=== PATIENT | female | born 1985 | race Caucasian/White ===

== ENCOUNTER 2016-10-28 17:43 | Emergency (ER) | payer OTHER ==
[~2016-10-28] VITALS: Ht 172.7 cm; Wt 63.4 kg
[2016-10-28 17:45] VITALS: BP 144/82; PULSE 90; RESP 15; TEMP 99.4; O2SAT 100
[2016-10-28 18:05] LABS: BLOOD, URINE NEG (NEG); GLUCOSE,URINE NEG (NEG); KETONE, URINE NEG (NEG); NITRITE,URINE NEG (NEG)
[2016-10-28 18:15] LABS: COMMENT (UR) CULT NOT INDICATED; CULTURE IF INDICATED CULT NOT INDICATED; METHOD OF COLLECTION CLEAN CATCH; SQUAMOUS EPITHELIAL CELL URINE 0-5 /hpf (0-5); URINE COLOR STRAW (YELLW/STRAW)
[2016-10-28] MEDS ORDERED: SODIUM CHLORIDE 0.9% FLUSH 5 ML FLUSH IVF PRN (18:15)
--- NOTE | 2016-10-28 18:33 | PD ---
HPI . Abdominal pain Chief Complaint: Abdominal Pain Time Seen by Provider: 18:30 Travel History International Travel<30 days: No Contact w/Intl Traveler<30days: No History of Present Illness HPI Patient presents stating that she's been feeling premenstrual for the last month. He has lower abdominal cramping, breast tenderness, nausea with occasional vomiting and early satiety. She has taken a home test which was negative. The symptoms have persisted causing her to present to us today. She notes no exacerbating or relieving factors. The symptoms have been continuous for the last month. [facility] Past Medical History ?: Unknown LMP: 3 WEEKS. Social History Tobacco Use: No Allergies-Medications (Allergen,Severity, Reaction): Coded Allergies: No Known Allergies (Unverified , 10/28/16) Reported Meds & Prescriptions Reported Meds & Active Scripts Active No Active Prescriptions or Reported Medications Review of Systems Except as stated in HPI: all other systems reviewed are Neg General / Constitutional: No: Fever, Chills Gastrointestinal: Positive: Nausea, Vomiting Genitourinary: Positive: Pelvic Pain, No: Dyspareunia, Discharge Skin: Positive Breast Tenderness, Positive Breast Swelling Physical Exam Narrative GENERAL: Healthy-appearing woman in no acute distress. SKIN: Warm and dry. Both breasts are diffusely tender. There is no nipple discharge. There is no mass. HEAD: Atraumatic. Normocephalic. EYES: Pupils equal and round. Extraocular movements are intact. ENT: No nasal bleeding or discharge. Mucous membranes pink and moist. NECK: Trachea midline. Neck is supple. CARDIOVASCULAR: Regular rate and rhythm. Heart sounds are normal. RESPIRATORY: No accessory muscle use. Lungs are clear with full air movement throughout. GASTROINTESTINAL: Abdomen soft. Lower abdominal tenderness. Nondistended. Normal bowel sounds. : No significant vaginal discharge. Cervical os is closed. She does seem to have some cervical motion tenderness and there is a fullness a patient of the left adnexal region. MUSCULOSKELETAL: No obvious deformities. No edema. NEUROLOGICAL: Awake and alert. No obvious cranial nerve deficits. Motor grossly within normal limits. Normal speech. PSYCHIATRIC: Appropriate mood and affect; insight and judgment normal. Data Data Last Documented VS Vital Signs Date Time Temp Pulse Resp B/P Pulse Ox O2 Delivery O2 Flow Rate FiO2 10/28/16 17:45 99.4 90 15 144/82 100 Orders Urinalysis - C+S If Indicated (10/28/16 17:48) Ed Urine Pregnancytest Poc (10/28/16 17:48) Complete Blood Count With Diff (10/28/16 18:13) Comprehensive Metabolic Panel (10/28/16 18:13) Lipase (10/28/16 18:13) Sodium Chloride 0.9% Flush (Ns Flush) (10/28/16 18:15) Gc And Chlamydia Pcr (10/28/16 18:39) Wet Prep Profile (10/28/16 18:39) Beta Hcg (Quant/Titer) (10/28/16 18:13) Labs Laboratory Tests Test 10/28/16 17:50 Urine Collection Type CLEAN CATCH Urine Color STRAW Urine Turbidity CLEAR Urine pH 6.0 Urine Specific [place] 1.003 Urine Protein NEG mg/dL Urine Glucose (UA) NEG mg/dL Urine Ketones NEG mg/dL Urine Occult Blood NEG Urine Nitrite NEG Urine Bilirubin NEG Urine Leukocyte Esterase NEG Urine Squamous Epithelial 0-5 /hpf Cells Urine Amorphous Sediment FEW Microscopic Urinalysis Comment CULT NOT INDICATED Urine Collection Time 1750 [facility] Medical Decision Making Medical Screen Exam Complete: Yes Emergency Medical Condition: Yes Differential Diagnosis Differential diagnosis of pelvic pain includes but is not limited to UTI, PID, ectopic , spontaneous AB, constipation, viral illness Narrative Course Patient presents with signs and symptoms consistent with . However, her test is negative. She does have a fullness on pelvic exam on her left side. An ultrasound has been ordered to rule out TOA. I have also ordered a serum test. Her care is being turned over to Dr. Mendez at this time. Diagnosis Primary Impression: Pelvic pain Additional Impressions: Breast tenderness in female Nausea and vomiting Qualified Code: R11.2 - Non-intractable vomiting with nausea, unspecified vomiting type Scripts No Active Prescriptions or Reported Meds Ernestine Mondragon MD Oct 28, 2016 18:33
[2016-10-28 18:57] LABS: AUTOMATED NEUTROPHIL # 4.3 TH/MM3 (1.8-7.7); BASOPHIL # 0.1 TH/MM3 (0-0.2); BASOPHIL % 1.5 % (0.0-2.0); EOSINOPHIL # 0.1 TH/MM3 (0-0.4); EOSINOPHIL % 1.5 % (0.0-4.0); HEMATOCRIT 41.1 % (35.0-46.0); HEMO FLAGS DIFF FINAL; LYMPH % 36.5 % (9.0-44.0); LYMPHOCYTE # 2.8 TH/MM3 (1.0-4.8); MEAN CORPUSCULAR HEMOGLOBIN 31.7 PG (27.0-34.0); MEAN CORPUSCULAR HGB CONC 34.1 % (32.0-36.0); MONO % 6.9 % (0.0-8.0); NEUT % 53.6 % (16.0-70.0); PLATELET COUNT 202 TH/MM3 (150-450); RED BLOOD COUNT 4.42 MIL/MM3 (4.00-5.30); RED CELL DISTRIBUTION WIDTH 11.5 % (11.6-17.2); WHITE BLOOD COUNT 7.8 TH/MM3 (4.0-11.0)
[2016-10-28 19:04] LABS: CHLORIDE 106 MEQ/L (98-107); POTASSIUM 3.4 MEQ/L (3.5-5.1); SODIUM (NA) 142 MEQ/L (136-145)
[2016-10-28 19:08] LABS: ANION GAP 9 MEQ/L (5-15); BICARBONATE 26.8 MEQ/L (21.0-32.0)
[2016-10-28 19:09] LABS: BLOOD UREA NITROGEN 16 MG/DL (7-18)
[2016-10-28 19:11] LABS: ALT (GPT) 20 U/L (10-53); AST (GOT) 18 U/L (15-37); GLOMERULAR FILTRATION RATE 80 ML/MIN (>89)
[2016-10-28 19:13] LABS: TOTAL BILIRUBIN ADULT 0.4 MG/DL (0.2-1.0)
[2016-10-28 19:14] LABS: ALKALINE PHOSPHATASE 47 U/L (45-117)
[2016-10-28 19:16] LABS: BETA HCG QUANT LESS THAN 1 MIU/ML (0-5)
--- NOTE | 2016-10-28 19:18 | PD ---
Physical Exam Date Seen by Provider: Oct 28, 2016 Time Seen by Provider: 19:17 Narrative accepted in transfer from Dr Mondragon GENERAL: Well-developed well-nourished female in no acute distress or respiratory distress GASTROINTESTINAL: Abdomen soft, tender left lower quadrant without guarding or rebound, nondistended. Data Data Last Documented VS Vital Signs Date Time Temp Pulse Resp B/P Pulse Ox O2 Delivery O2 Flow Rate FiO2 10/28/16 19:25 83 16 115/63 100 Room Air 10/28/16 17:45 99.4 Orders Urinalysis - C+S If Indicated (10/28/16 17:48) Ed Urine Pregnancytest Poc (10/28/16 17:48) Complete Blood Count With Diff (10/28/16 18:13) Comprehensive Metabolic Panel (10/28/16 18:13) Lipase (10/28/16 18:13) Sodium Chloride 0.9% Flush (Ns Flush) (10/28/16 18:15) Gc And Chlamydia Pcr (10/28/16 18:39) Wet Prep Profile (10/28/16 18:39) Beta Hcg (Quant/Titer) (10/28/16 18:13) Us Pelvis Comp Quality Control Expert/Non-Preg (10/28/16 18:54) Ketorolac Inj (Toradol Inj) (10/28/16 20:15) Potassium Chloride (Kcl) (10/28/16 20:15) Labs Laboratory Tests Test 10/28/16 10/28/16 10/28/16 17:30 17:50 18:35 White Blood Count 7.8 TH/MM3 Red Blood Count 4.42 MIL/MM3 Hemoglobin 14.0 GM/DL Hematocrit 41.1 % Mean Corpuscular Volume 93.0 FL Mean Corpuscular Hemoglobin 31.7 PG Mean Corpuscular Hemoglobin 34.1 % Concent Red Cell Distribution Width 11.5 % Platelet Count 202 TH/MM3 Mean Platelet Volume 10.1 FL Neutrophils (%) (Auto) 53.6 % Lymphocytes (%) (Auto) 36.5 % Monocytes (%) (Auto) 6.9 % Eosinophils (%) (Auto) 1.5 % Basophils (%) (Auto) 1.5 % Neutrophils # (Auto) 4.3 TH/MM3 Lymphocytes # (Auto) 2.8 TH/MM3 Monocytes # (Auto) 0.5 TH/MM3 Eosinophils # (Auto) 0.1 TH/MM3 Basophils # (Auto) 0.1 TH/MM3 CBC Comment DIFF FINAL Differential Comment Sodium Level 142 MEQ/L Potassium Level 3.4 MEQ/L Chloride Level 106 MEQ/L Carbon Dioxide Level 26.8 MEQ/L Anion Gap 9 MEQ/L Blood Urea Nitrogen 16 MG/DL Creatinine 0.82 MG/DL Estimat Glomerular Filtration 80 ML/MIN Rate Random Glucose 83 MG/DL Calcium Level 9.1 MG/DL Total Bilirubin 0.4 MG/DL Aspartate Amino Transf 18 U/L (AST/SGOT) Alanine Aminotransferase 20 U/L (ALT/SGPT) Alkaline Phosphatase 47 U/L Total Protein 8.4 GM/DL Albumin 4.4 GM/DL Lipase 170 U/L Human Chorionic Gonadotropin, LESS THAN 1 Quant MIU/ML Urine Collection Type CLEAN CATCH Urine Color STRAW Urine Turbidity CLEAR Urine pH 6.0 Urine Specific [place] 1.003 Urine Protein NEG mg/dL Urine Glucose (UA) NEG mg/dL Urine Ketones NEG mg/dL Urine Occult Blood NEG Urine Nitrite NEG Urine Bilirubin NEG Urine Leukocyte Esterase NEG Urine Squamous Epithelial 0-5 /hpf Cells Urine Amorphous Sediment FEW Microscopic Urinalysis Comment CULT NOT INDICATED Urine Collection Time 1750 Clue Cells (Wet Prep) NONE SEEN Vaginal Trichomonas (Wet Prep) NONE SEEN Vaginal Yeast (Wet Prep) NONE SEEN MDM Medical Record Reviewed: Yes Supervised Visit with DEEPALI: No Differential Diagnosis accepted in transfer from Dr Mondragon, please refer to her dictation Narrative Course accepted in transfer from Dr Mondragon; follow up of pending labs, imaging, and disposition At 8 PM lab values are resulted and found to be within normal range CBC is automated differential values are normal range, quantitative hCG 1, not elevated negative for , complete metabolic panel values are normal range except for mild hypokalemia of 3.4, oral potassium replacement provided, urinalysis values are in normal range, wet prep is negative, and ultrasound of the pelvis shows scant free fluid otherwise normal reproductive organs and no acute abnormality per reading radiologist. Patient informed of imaging results , Toradol 30 mg IV administered and potassium 20 mEq by mouth administered; informed of need for close follow up with her PCP for further outpatient evaluation. Diagnosis Primary Impression: Pelvic pain Additional Impressions: Breast tenderness in female Nausea and vomiting Qualified Code: R11.2 - Non-intractable vomiting with nausea, unspecified vomiting type Referrals: Primary Care Physician call for appointment Patient Instructions: General Instructions Additional Instruction: Use medication as prescribed as needed for nausea and/or vomiting Follow-up with your primary care provider call office on Sunday to schedule follow-up appointment Increase fluid hydration Add potassium containing foods and beverages to dietary intake Return to the emergency department for any concerns or change in condition Take as needed acetaminophen/Tylenol every 4-6 hours as needed for fever 100.4 F or greater or for minor pain; may also use ibuprofen/Advil/Motrin every 6-8 hours as needed for fever 100.4F or greater or for pain associated with inflammation Med/Other Pt SpecificInfo: Prescription(s) given Scripts Ondansetron Odt (Zofran Odt)4 Mg Tab4 Mg SL Q6HR PRN (Nausea/Vomiting) #10 TAB Ref 0 Prov:Padmini Mendez MD 10/28/16 Disposition: 01 DISCHARGE HOME Condition: Stable (ERASED) Padmini Mendez MD Oct 28, 2016 19:18
[2016-10-28 19:25] VITALS: BP 115/63; PULSE 83; RESP 16; O2SAT 100
--- NOTE | 2016-10-28 19:54 | RADHPO ---
EXAM DATE/TIME: 10/28/2016 19:35 [place] COMPARISON: No previous studies available for comparison. INDICATIONS : Pelvic pain and bloating. MEDICAL HISTORY : Ovarian cysts. Fibroids. SURGICAL HISTORY : Back surgery. ENCOUNTER: Initial ACUITY: 1 month PAIN SCORE: 8/10 LOCATION: Bilateral pelvis MEASUREMENTS: UTERUS: 11.9 x 4.5 x 3.0 cm ENDOMETRIAL STRIPE: 10 mm RIGHT OVARY: 3.1 x 1.8 x 1.4 cm LEFT OVARY: 3.0 x 1.6 x 2.1 cm FINDINGS: UTERUS: The myometrium has homogeneous echotexture without mass. RIGHT OVARY: Ovary contains no mass or significant cystic lesion. LEFT OVARY: Ovary contains no mass or significant cystic lesion. MISCELLANEOUS: There is a small amount of free fluid. CONCLUSION: 1. The uterus and ovaries appear unremarkable. 2. Small amount of free fluid. Sudeep Figueroa MD on October 28, 2016 at 19:49 Board Certified Radiologist. This report was verified electronically.
[2016-10-28] MEDS ORDERED: ZOFR4TAB3 SL (20:11)
[2016-10-28 20:15] VITALS: BP 114/62; PULSE 79; RESP 16; O2SAT 100
[2016-10-28] MEDS ORDERED: POTASSIUM CHLORIDE 20 MEQ CONTROLLED RELEASE TAB PO ONE (20:15)
[2016-10-28] MEDS ORDERED: KETOROLAC TROMETHAMINE 30 MG/ML (IVP) VIAL IV PUSH ONE (20:15)
[2016-10-29 05:22] LABS: CHLAMYDIA PCR NOT DETECTED (NOT DETECT); NEISSERIA PCR NOT DETECTED (NOT DETECT)
== END 2016-10-28 20:40 | disposition home or self-care (01) ==
LOC: PHED 17:43
DX: R10.2 Pelvic and perineal pain (principal); R11.2 Nausea with vomiting, unspecified
CPT/HCPCS: 76856; 80053; 81001; 83690; 84702; 84703; 85025; 87210; 87491; 87591; 96374; 99284; J1885